=== PATIENT | female | born 1975 | race Caucasian/White ===

== ENCOUNTER → 2022-03-22 | Day surgery (SDC) | payer MEDICARE, OTHER ==
[~2022-03-22] VITALS: Ht 170.2 cm; Wt 86.2 kg
[~2022-03-22] MED LIST: AUGMENTIN 875-1 EACH PO; BUSPIRONE HCL15 MG PO; COUMADIN1 MG PO; COUMADIN5 MG PO; CYCLOBENZAPRINE10 MG PO; DEPAKOTE ER500 MG PO; DESYREL50 MG PO; ELAVIL50 MG PO; LATUDA60 MG PO; LEVEMIR VI100 UNITS/ SC; LIPITOR 10MG TA10 MG PO; MEDROL 4MG DOSEP4 MG PO; MINIPRESS1 MG PO; NEURONTIN300 MG PO; NORCO 5-325 TA1 EACH PO; NOVOLOG VI100 UNIT/1 SC; REMERON45 MG PO; RISPERDAL3 MG PO; SYNTHROID125 MCG PO; TOPAMAX100 MG PO; ZONEGRAN100 MG PO
[2022-03-22 09:53] LABS: INR 1.07 (0.9-1.2); PROTHROMBIN TIME 13.3 SECONDS (11.8-13.4); PTT 24.4 SECONDS (24.4-34.7)
== END | disposition home or self-care (01) ==
LOC: FAS 08:30
PROVIDERS: Student in an Organized Health Care Education/Training Program
DX: Z12.11 Encounter for screening for malignant neoplasm of colon (principal); D12.3 Benign neoplasm of transverse colon; D12.0 Benign neoplasm of cecum; D68.61 Antiphospholipid syndrome; E10.42 Type 1 diabetes mellitus with diabetic polyneuropathy; E03.9 Hypothyroidism, unspecified; G40.909 Epilepsy, unspecified, not intractable, without status epilepticus; F17.200 Nicotine dependence, unspecified, uncomplicated; Z86.73 Personal history of transient ischemic attack (TIA), and cerebral infarction without residual deficits; Z88.5 Allergy status to narcotic agent; Z88.8 Allergy status to other drugs, medicaments and biological substances
CPT/HCPCS: 36415; 85610; 85730; J2704; J7120

== ENCOUNTER → 2022-06-07 | Day surgery (SDC) | payer MEDICARE, OTHER ==
[~2022-06-07] VITALS: Ht 170.2 cm; Wt 86.2 kg
[2022-06-07 11:21] LABS: INR 1.09 (0.9-1.2); PROTHROMBIN TIME 13.8 SECONDS (11.9-13.9); PTT 25.8 SECONDS (24.9-34.6)
== END | disposition home or self-care (01) ==
LOC: FAS 09:45
PROVIDERS: Student in an Organized Health Care Education/Training Program
DX: D12.3 Benign neoplasm of transverse colon (principal); D68.61 Antiphospholipid syndrome; Z79.01 Long term (current) use of anticoagulants; Z88.5 Allergy status to narcotic agent; Z88.8 Allergy status to other drugs, medicaments and biological substances
CPT/HCPCS: 36415; 85610; 85730; 93005; J2704; J7120